=== PATIENT | female | born 1955 | race African-American/Black ===

== ENCOUNTER 2016-12-08 03:56 | Inpatient (IN) | payer OTHER ==
[~2016-12-08] VITALS: Ht 177.8 cm; Wt 103.5 kg
--- NOTE | ~2016-12-08 | EKG ---
PATIENT: TOREY PATEL UNIT #: [id number] Ventricular Rate: 69 BPM Atrial Rate: 69 BPM P-R Interval: 166 ms QRS Duration: 94 ms Q-T Interval: 384 ms QTC Calculation(Bezet): 411 ms P [place]: 58 degrees Calculated R [place]: -12 degrees Calculated T [place]: -3 degrees Diagnosis Line: Normal sinus rhythm Diagnosis Line: Normal ECG Diagnosis Line: When compared with ECG of 08-DEC-2016 13:22, Diagnosis Line: No significant change was found Diagnosis Line: Confirmed by WILLI OSMAN MD ([id number]) on 12/14/2016 Diagnosis Line: 7:29:57 AM INTERPRETING MD: DAWSON WESTBROOK
--- NOTE | ~2016-12-08 | EKG ---
PATIENT: TOREY PATEL UNIT #: [id number] Ventricular Rate: 81 BPM Atrial Rate: 81 BPM P-R Interval: 156 ms QRS Duration: 88 ms Q-T Interval: 368 ms QTC Calculation(Bezet): 427 ms P [place]: 56 degrees Calculated R [place]: -11 degrees Calculated T [place]: -2 degrees Diagnosis Line: Normal sinus rhythm Diagnosis Line: Nonspecific T wave abnormality Diagnosis Line: Abnormal ECG Diagnosis Line: No previous ECGs available Diagnosis Line: Confirmed by LINDA MIR MD ([id number]) on Diagnosis Line: 12/08/2016 3:54:11 PM INTERPRETING MD: KEITH
--- NOTE | ~2016-12-08 | EKG ---
PATIENT: TOREY PATEL UNIT #: [id number] Ventricular Rate: 61 BPM Atrial Rate: 61 BPM P-R Interval: 164 ms QRS Duration: 88 ms Q-T Interval: 390 ms QTC Calculation(Bezet): 392 ms P [place]: 46 degrees Calculated R [place]: -18 degrees Calculated T [place]: -12 degrees Diagnosis Line: Normal sinus rhythm Diagnosis Line: Normal ECG Diagnosis Line: When compared with ECG of 08-DEC-2016 08:01, Diagnosis Line: (unconfirmed) Diagnosis Line: No significant change was found Diagnosis Line: Confirmed by LINDA MIR MD ([id number]) on Diagnosis Line: 12/08/2016 3:57:55 PM INTERPRETING MD: KEITH
--- NOTE | ~2016-12-08 | DS ---
Unit #: [id number] #: [id number] Patient: TOREY PATEL [id number] [address] [address] [id number] I MR#: [id number] NAME: TOREY PATEL ROOM: 551 Age: 61 Sex: F Admission Date: 12/08/2016 : 1955 Discharge Date: 12/10/2016 Attending Physician: Suha Salgado M.D. Primary Care Physician: Ginger Kitchen DISCHARGE SUMMARY DISCHARGE DIAGNOSES 1. Acute coronary syndrome. 2. Coronary artery disease, status post cardiac catheterization on 12/08/2016 with percutaneous coronary intervention and drug-eluting stent in the mid left circumflex. Left main, LAD, and right coronary artery normal. 3. Two-dimensional echocardiogram on 12/08/2016 revealed an ejection fraction of 50%. Moderate septal hypokinesis. Mild left ventricular hypertrophy. Mildly dilated left atrium. Mild mitral regurgitation. Mild tricuspid regurgitation. Right ventricular systolic pressure 34 mmHg. No pericardial effusion. 4. Hyperlipidemia, mixed, uncontrolled. 5. Hypertension. 6. Diabetes mellitus, type 2. 7. Mild anemia. 8. Obesity. 9. Chronic back pain. DISCHARGE MEDICATIONS 1. Atorvastatin 80 mg p.o. at bedtime. 2. Atenolol 50 mg p.o. daily. 3. Lisinopril 5 mg p.o. daily. 4. Aspirin 81 mg p.o. daily. 5. Brilinta 90 mg p.o. b.i.d. 6. Nitroglycerin 0.4 mg sublingual q.5 minutes x3 p.r.n. for chest pain. HOSPITAL COURSE This is a 61-year-old, female with a past medical history of hypertension, diabetes mellitus, obesity, and chronic back pain. Patient presented to [facility] secondary to complaints of chest pain. She was transferred to [facility] for further evaluation. There was initial concern for possible myocardial infarction. Troponin was elevated at 0.08 and 0.14. She also has an elevated D-dimer. A CTA of the chest was completed and was negative for pulmonary embolus. Her cardiac enzymes were trended and she ruled out for myocardial infarction. However, her symptoms were concerning and she was recommended for cardiac catheterization. Prior to the cardiac catheterization, she was placed on a high dose statin due to uncontrolled hyperlipidemia. She was given a full dose aspirin and started on a heparin drip per protocol. She was continued on a beta-solitario and LULI inhibitor. Her LULI inhibitor was decreased due to marginal blood pressure readings. Unit #: [id number] #: [id number] Patient: TOREY PATEL She underwent cardiac catheterization by Dr. Tate on 12/08/2016. She underwent a PCI and drug-eluting stent in the mid left circumflex. The left main, LAD, and right coronary artery were normal. Final operative report is pending. She tolerated procedure well and was transferred for further evaluation. Telemetry revealed sinus rhythm with no arrhythmias. Cath site was soft without hematoma. Her vital signs are stable. Creatinine 0.9 with a BUN of 15. Her peak troponin was 0.28. She was diagnosed with acute coronary syndrome during hospitalization. Today, she has ambulated without complaints of chest pain and shortness of breath. She has walked in the hallway and is in stable condition. Cost of Brilinta has been checked with case management, but due to it being the weekend, it will need a preauthorization. The patient has been provided a 30-day copay card as well as 1 month of samples from the office. Importance of dual antiplatelet therapy for a minimum of 12 months has been discussed and she verbalizes understanding. She has been provided prescriptions for atorvastatin, atenolol, lisinopril, aspirin, Brilinta, and nitroglycerin. She has been instructed to follow up with her primary care provider as well as Dr. Salgado at the [place] office. DIAGNOSTIC STUDIES LABORATORY: WBC 7.5, hemoglobin 10.8, hematocrit 32.9, and platelets 202. Sodium 136, potassium 4.5, chloride 106, CO2 22, BUN 15, creatinine 0.9, glucose 263, AST 19, ALT 20, alkaline phos 73. Troponin 0.11, 0.19, 0.28, and 0.14; angio CK is 482, MB 2.7%, MB 0.6. Cholesterol 250, triglycerides 339, LDL 163, and HDL 29. TSH 2.15. IMAGING: Recent CTA of the chest at [facility] was negative for PE. CARDIOVASCULAR: Electrocardiogram was normal sinus rhythm with no acute ST or T wave changes. PHYSICAL EXAMINATION VITAL SIGNS: Temperature 97.5, pulse 84, blood pressure 148/78. CONSTITUTIONAL: This is a 61-year-old, -[place] female in no acute distress SKIN: Warm and dry. NECK: Supple. No jugular venous distention. No hepatojugular reflux. Normal carotid upstrokes. No carotid bruits auscultated. HEART: S1 and S2. Regular rate and rhythm. No murmurs, rubs, or gallops. LUNGS: Bilateral breath sounds with good air entry throughout all lung mirza. Respirations even and unlabored. No rales, rhonchi, or wheezes. ABDOMEN: Soft, nontender, and nondistended. Positive bowel sounds auscultated in x4 quadrants. No ascites noted. EXTREMITIES: Lower extremities have no pretibial pitting edema. DP and PT pulses 2+. Capillary refill less than 3 seconds. Right groin soft without hematoma. DISCHARGE INSTRUCTIONS 1. Patient will be discharged home today. 2. Follow up with primary care provider in 1-2 weeks. 3. Follow up with Dr. Salgado at the [place] office in 6-8 weeks. The office with call with an appointment. 4. Post-cath instructions provided. 5. Dual antiplatelet therapy for a minimum of 12 months. 6. Copay card and one month of samples provided for Ririta. 7. The patient would benefit from a repeat fasting lipid profile in Unit #: [id number] #: [id number] Patient: TOREY PATELETTA three months. 8. She has been advised to exercise and to go to cardiac rehab. Dictated by... Brandee Mac APRN for Eladio Patricia TD: 12/14/2016 09:01 JOB #: [id number] DISCHARGE SUMMARY Page 1 of 1 X X DISCHARGE SUMMARY
--- NOTE | ~2016-12-08 | HP ---
Unit #: [id number] #: [id number] Patient: TOREY PATEL [id number] [address] [address] [id number] I MR#: [id number] NAME: TOREY PATEL ROOM: [facility] Age: Sex: F Admission Date: 12/08/2016 : 1955 Attending Physician: Suha Salgado M.D. Primary Care Physician: Ginger Kitchen HISTORY AND PHYSICAL ADDENDUM Risks and benefits of cardiac catheterization have been explained to the patient and she is agreeable and willing to proceed. Dictated by Tessa Lama/speedy TD: 12/08/2016 14:20 JOB #: [id number] HISTORY AND PHYSICAL Page 1 of 1 X Azul Duncan APRN X HISTORY AND PHYSICAL
--- NOTE | ~2016-12-08 | HP ---
Unit #: [id number] #: [id number] Patient: TOREY PATEL [id number] [facility]. [place], [place] [address] [id number] MR#: [id number] NAME: TOREY PATEL ROOM: [facility] Age: 61 Sex: F Admission Date: 12/08/2016 : 1955 Attending Physician: Suha Salgado M.D. HISTORY AND PHYSICAL PRIMARY CARE PHYSICIAN Ginger Kitchen HISTORY OF PRESENT ILLNESS This is a very pleasant 61-year-old female with a past medical history of hypertension, diabetes mellitus, obesity, chronic back pain, and a family history of coronary artery disease. She initially presented to [facility] secondary to complaints of chest pain. The patient tells me she has been having intermittent episodes of pain in her chest for the past few days, primarily left-sided chest wall. However, yesterday, the pain in her chest worsened and traveled into the substernal area prompting her to seek evaluation at the ER. It appears that initially her blood pressure was elevated at [facility] with systolic 149/115. An EKG was performed there which showed sinus rhythm, rate of 85 beats per minute, abnormal R wave progression, probable LVH with early repolarization, QTc interval of 426 msec, and no acute ischemia was noted. She did have cardiac enzymes performed at [facility] which were noted to be initially 0.08 with a repeat troponin of 0.14. The patient also was noted to have an elevated D-dimer. She also underwent CTA of the chest there which was negative for pulmonary embolus. The patient was transferred to [facility] for further evaluation and treatment. The patient had ischemic evaluation in 2009 in [place], and her stress test at that time was reportedly normal. At present, she is in the CCU room 3. She denies any further complaints of chest pain or shortness of breath. She is resting in bed, and she appears comfortable. Repeat EKG has been ordered and repeat cardiac enzymes are currently pending. PAST MEDICAL HISTORY 1. Hypertension. 2. Diabetes mellitus. 3. Obesity. 4. Family history of coronary artery disease. 5. Chronic low back pain. PAST SURGICAL HISTORY 1. Tonsillectomy and adenoidectomy. 2. Hysterectomy. 3. Orthopedic surgery for her foot. HOME MEDICATIONS Unit #: [id number] #: [id number] Patient: TOREY PATEL 1. Metformin 1000 mg 1 tab p.o. b.i.d. 2. Lisinopril 5 mg 1 tab p.o. daily. 3. Atenolol 50 mg 1 tab p.o. daily. 4. Humalog a.c. and at bedtime. ALLERGIES Codeine. FAMILY HISTORY Hypertension and diabetes in her father and coronary artery disease with an NV in her brother who at age 62. SOCIAL HISTORY The patient lives with her . She is a nonsmoker and denies illicit drugs or alcohol. 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 REVIEW OF SYSTEMS Negative except for what was stated above in the HPI. DIAGNOSTIC STUDIES LABORATORY: I have some labs from [facility]: Hemoglobin 11.7, hematocrit 35.8, and WBC 7.7. Sodium was 136, potassium 4.8, chloride 102, CO2 of 26, BUN 25, creatinine 1.3, and glucose was 280. Magnesium was 1.4. Initial troponin was 0.08 and repeat was 0.14. IMAGING: She had a chest x-ray at [facility] that showed no active disease. The patient also underwent CTA of the chest secondary to elevated D-dimer at [facility] which was a normal CTA of the chest. No evidence of PE or arterial dissection. CARDIOLOGY: EKG shows normal sinus rhythm at 75 beats per minute, poor R wave progression, nonspecific T wave abnormality, probable LVH, and QTc interval of 426 msec. No acute ischemic changes noted. IMPRESSION 1. Acute coronary syndrome. 2. Hypertension. 3. Diabetes mellitus. 4. Hyperlipidemia. 5. Family history of coronary artery disease. 6. Hypokalemia. 7. Hypomagnesemia. PLAN The patient has been transferred from [facility] secondary to complaints of chest pain. With acute coronary syndrome, her initial troponin was 0.08 and repeat troponin was 0.14. The patient is currently chest pain free. She did have ischemic evaluation with a stress test in the past which was reportedly negative. Will repeat EKG now stat, as well as troponin, CK and CK-MB, CBC, CMP, magnesium level, lipid panel, and a TSH. The patient will be given aspirin 325 mg p.o. stat, and she was going to be started on a heparin drip low doses with boluses. However, the patient did receive a dose of Lovenox at 4 a.m. this morning; therefore, the heparin has been held. Will check 2D echocardiogram. She will be started on Accu-Cheks a.c. and at bedtime with low-dose sliding scale insulin per protocol, as well as given high-dose statin therapy. Her atenolol 50 mg daily has been resumed with parameters to hold for Unit #: [id number] #: [id number] Patient: TOREY PATEL systolic less than 1000 and a heart rate less than 60. The patient will be kept n.p.o. for now for left heart cath per Dr. Tate later today. Will check EKG and troponin in the a.m. Electrolytes are being replaced. Further recommendations pending the outcome of her cardiac cath. Dictated by Darlene LamaRKarsonNKarson for Leila Barksdale M.D. LMW/am TD: 12/08/2016 14:10 JOB #: [id number] HISTORY AND PHYSICAL Page 1 of 1 X Azul Duncan APRN X HISTORY AND PHYSICAL
--- NOTE | ~2016-12-08 | EKG ---
PATIENT: TOREY PATEL UNIT #: [id number] Ventricular Rate: 67 BPM Atrial Rate: 67 BPM P-R Interval: 160 ms QRS Duration: 94 ms Q-T Interval: 392 ms QTC Calculation(Bezet): 414 ms P [place]: 51 degrees Calculated R [place]: -12 degrees Calculated T [place]: -14 degrees Diagnosis Line: Normal sinus rhythm Diagnosis Line: Nonspecific T wave abnormality Diagnosis Line: Abnormal ECG Diagnosis Line: When compared with ECG of 09-DEC-2016 06:48, Diagnosis Line: (unconfirmed) Diagnosis Line: No significant change was found Diagnosis Line: Confirmed by WILLI OSMAN MD ([id number]) on 12/14/2016 Diagnosis Line: 7:36:24 AM INTERPRETING MD: DAWSON WESTBROOK
[2016-12-08] MEDS ORDERED: PRINIVIL10 MG PO (07:57)
[2016-12-08] MEDS ORDERED: TENORMIN25 MG PO (07:58)
[2016-12-08] MEDS ORDERED: LIPITOR80 MG PO (08:00)
[2016-12-08 08:35] LABS: BASOPHIL% 0.4 % (0-2.5); EOSINOPHIL# 0.1 X10e3 (0-0.7); EOSINOPHIL% 1.7 % (0.0-7.0); HEMATOCRIT 37.7 % (35.0-45.0); HEMOGLOBIN 11.9 gm/dL (12.0-16.0); LYMPHOCYTE% 36.1 % (17.0-45.0); MEAN CELL VOLUME 82.2 FL (83-96); MEAN CORPUSCULAR HEMOGLOBIN 25.9 PG (28-34); MEAN CORPUSCULAR HGB CONC 31.5 g/dL (30-36); MEAN PLATELET VOLUME 11.2 FL (6.5-11.5); MONOCYTE# 0.6 X10e3 (0-1.0); MONOCYTE% 7.2 % (3.0-12.0); NEUTROPHIL# 4.6 X10e3 (1.5-7.1); NEUTROPHIL% 54.6 % (40-75); PLATELET COUNT 177 X10e3 (140-420); RED BLOOD COUNT 4.59 X10e (3.90-5.30); WHITE BLOOD COUNT 8.4 X10e3 (4.0-10.5)
[2016-12-08 08:43] LABS: DIFF IND NO
[2016-12-08 08:53] LABS: ALBUMIN SERUM 4.1 g/dL (3.5-5.0); BILIRUBIN,TOTAL 0.8 mg/dL (0.2-2.0); BUN/CREATININE RATIO 15.45; CALCIUM SERUM 9.3 mg/dL (8.4-10.2); CREATININE SERUM 1.1 mg/dL (0.6-1.4); GLOM FILT RATE Estimated 61.9 mL/min (>60); MAGNESIUM 1.4 mg/dL (1.6-3.0); POTASSIUM 3.4 mmol/L (3.5-5.1); PROTEIN TOTAL SERUM 7.5 g/dL (6.0-8.3)
[2016-12-08 09:11] LABS: %MB 1.3 % (0.0-4.0); MB 2.1 ng/ml
[2016-12-08 09:28] LABS: MAGNESIUM 1.5 mg/dL (1.6-3.0)
[2016-12-08 16:45] LABS: %MB 0.5 % (0.0-4.0); MB 1.9 ng/ml
[2016-12-08 21:15] LABS: ANGIO %MB 0.4 % (0.0-4.0); ANGIO MB 2.6 ng/ml
[2016-12-09 05:21] LABS: BASOPHIL% 0.3 % (0-2.5); EOSINOPHIL# 0.1 X10e3 (0-0.7); EOSINOPHIL% 1.3 % (0.0-7.0); HEMATOCRIT 32.9 % (35.0-45.0); HEMOGLOBIN 10.8 gm/dL (12.0-16.0); LYMPHOCYTE# 2.4 X10e3 (1.0-3.5); LYMPHOCYTE% 31.7 % (17.0-45.0); MEAN CELL VOLUME 82.4 FL (83-96); MEAN CORPUSCULAR HEMOGLOBIN 27.1 PG (28-34); MEAN CORPUSCULAR HGB CONC 32.9 g/dL (30-36); MONOCYTE# 0.4 X10e3 (0-1.0); MONOCYTE% 5.5 % (3.0-12.0); NEUTROPHIL# 4.6 X10e3 (1.5-7.1); NEUTROPHIL% 61.2 % (40-75); PLATELET COUNT 202 X10e3 (140-420); RED BLOOD COUNT 3.99 X10e (3.90-5.30); RED CELL DISTRIBUTION WIDTH 13.8 % (11.0-15.5); WHITE BLOOD COUNT 7.5 X10e3 (4.0-10.5)
[2016-12-09 05:33] LABS: DIFF IND NO
[2016-12-09 06:27] LABS: BUN/CREATININE RATIO 16.66; CALCIUM SERUM 8.8 mg/dL (8.4-10.2); CREATININE SERUM 0.9 mg/dL (0.6-1.4); GLOM FILT RATE Estimated 78.9 mL/min (>60); POTASSIUM 4.5 mmol/L (3.5-5.1)
[2016-12-09 07:06] LABS: ANGIO MB 2.7 ng/ml
[2016-12-09 07:30] LABS: ANGIO %MB 0.6 % (0.0-4.0)
[2016-12-09 07:39] LABS: CHOLESTEROL 260 mg/dL (0-200); HDL CHOLESTEROL 29 mg/dL (35-95); LDL/HDL RATIO 6 RATIO (0-4); TRIGLYCERIDES 339 mg/dL (10-160)
[2016-12-09 07:44] LABS: LDL CHOLESTEROL 163 mg/dL (-130)
[2016-12-10] MEDS ORDERED: NITROGLYCERIN0.4 MG SL (13:34)
[2016-12-10] MEDS ORDERED: BRILINTA90 MG PO (13:43)
[2016-12-10] MEDS ORDERED: ASPIRIN81 MG PO (13:43)
== END 2016-12-10 15:29 | disposition home or self-care (01) | DRG 247 ==
LOC: CEDOF 03:56 → CICCU2 06:31 → C5B 12-09 12:20
PROVIDERS: Internal Medicine Cardiovascular Disease; Internal Medicine Interventional Cardiology
PROC: B246YZZ Ultrasonography of Right and Left Heart using Other Contrast (ICD-10-PCS; principal; 2016-12-08)
PROC: 027034Z Dilation of Coronary Artery, One Artery with Drug-eluting Intraluminal Device, Percutaneous Approach (ICD-10-PCS; 2016-12-08)
PROC: 4A023N7 Measurement of Cardiac Sampling and Pressure, Left Heart, Percutaneous Approach (ICD-10-PCS; 2016-12-08)
PROC: B211YZZ Fluoroscopy of Multiple Coronary Arteries using Other Contrast (ICD-10-PCS; 2016-12-08)
PROC: B215YZZ Fluoroscopy of Left Heart using Other Contrast (ICD-10-PCS; 2016-12-08)
DX: I24.9 Acute ischemic heart disease, unspecified (principal); E83.42 Hypomagnesemia; I10 Essential (primary) hypertension; I25.10 Atherosclerotic heart disease of native coronary artery without angina pectoris; E11.9 Type 2 diabetes mellitus without complications; E66.9 Obesity, unspecified; M54.9 Dorsalgia, unspecified; Z82.49 Family history of ischemic heart disease and other diseases of the circulatory system; E87.6 Hypokalemia; Z79.4 Long term (current) use of insulin
CPT/HCPCS: 80048; 80053; 80061; 82550; 82553; 82947; 83735; 84132; 84443; 84484; 85025; 85347; 93005; 93306; C1725; C1769; C1874; C1887; J1644; J1815; J2250; J2405; J3010; J3475